=== PATIENT | male | born 1975 | race Hispanic/Latino ===

== ENCOUNTER 2019-07-18 08:11 | Emergency (ER) | payer SELFPAY ==
[2019-07-18 08:28] VITALS: BP 153/92
--- NOTE | 2019-07-18 08:53 | Emergency Department Report ---
Chief Complaint: Medical Clearance Stated Complaint: MEDICATION REFILL Time Seen by Provider: 07/18/19 08:46 - HPI History of Present Illness: 44-year-old male presents to the emergency room requesting a refill on his Ativan. Patient states that he had ran out a few days ago. Patient also reports that his provider or psychiatrist Dr. Darren Lima has been closed down. Patient reports that he went to [facility] and they said they did not have a provider on staff today. Patient denies any chest pain shortness of breathing diaphoresis nausea vomiting. He does have a past medical history anxiety and panic attacks with OCD. Patient is accompanied by his mother. In review of this [facility] aware patient has a prescription still valid from 05/06/[address] Lima with 3 refills. - Exam Vital Signs: Vital Signs 07/18/19 08:26 Temperature 98.1 F Pulse Rate 95 H Respiratory 16 Rate Blood Pressure 153/92 O2 Sat by Pulse 99 Oximetry MSE screening note: Focused history and physical exam performed. Due to findings the following was ordered: 44-year-old male presents to the emergency room requesting a refill on his Ativan. Patient states that he had ran out a few days ago. Patient also reports that his provider or psychiatrist Dr. Darren Lima has been closed down. Patient reports that he went to [facility] and they said they did not have a provider on staff today. Patient denies any chest pain shortness of breathing diaphoresis nausea vomiting. He does have a past medical history anxiety and panic attacks with OCD. Patient is accompanied by his mother. In review of this [facility] aware patient has a prescription still valid from 05/06/[address] Lima with 3 refills. I made aware to patient that he still has 3 refills on his Ativan. I also discussed the patient that he remained emergency room we do not write prescriptions for controlled substances as he will need to follow up with the psychiatrist. Patient verbalized understanding. ED Disposition for MSE Clinical Impression: Medication refill Disposition: Z-07 MED SCREENING EXAM-LEFT Is pt being admited?: No Does the pt Need Aspirin: No Condition: Stable
== END 2019-07-18 08:52 | disposition left against medical advice (07) ==
LOC: ED 08:11
DX: F41.9 Anxiety disorder, unspecified (principal); Z76.0 Encounter for issue of repeat prescription
CPT/HCPCS: 99281